=== PATIENT | female | born 1935 | race Caucasian/White ===

== ENCOUNTER 2016-09-01 10:23 | Emergency (ER) | payer MEDICARE, OTHER ==
[~2016-09-01] VITALS: Ht 152.4 cm; Wt 59.0 kg
[~2016-09-01 10:23] MED LIST: CYAN100071 PO; D3 PO; DOXY100C41 PO; FISH OIL PO; LACT1CAP69 PO; SPIR25TA4 PO; UBID100C13 PO
--- NOTE | 2016-09-01 10:30 | NUR ---
BIB TRIAGE NURSE TO BEDSIDE. PT IS A 80 Y/O F. ACCOMPANIED BY SON AT BEDSIDE. PT IS AMBULATORY WITH SLOW GAIT. SPEAKING IN FULL SENTENCES. VSS. NAD NOTED. C/O LOWER BACK PAIN S/P CARRYING A HEAVY OBJECT. HX OF CHRONIC BACK PAIN IN THE PAST. PT DOES'T REMEMBER MEDICAITON THAT SHE WAS TAKING AT HOME. BUT IT WAS "INEFFECTIVE". WCTM PT AT THIS TIME. WATING FOR MD TO PERFORM MSE.
[2016-09-01] MEDS ORDERED: HYDROCODONE/APAP 5-325MG TABLET PO ONE (10:45)
[2016-09-01] MEDS ORDERED: HYDROCODONE/APAP 5-325MG TABLET ONE (10:52)
[2016-09-01 10:53] LABS: BASOPHILS % (AUTO) 0.7 % (0.0-2.0); EOSINOPHILS % (AUTO) 0.6 % (0.0-7.0); HEMATOCRIT 38.5 % (37-47); HEMOGLOBIN 12.8 G/DL (12.0-16.0); LYMPHOCYTES # (AUTO) 1.4 K/UL (0.8-4.8); LYMPHOCYTES % (AUTO) 29.2 % (20.5-51.5); MEAN CORPUSCULAR HEMOGLOBIN 33.8 UUG (27.0-31.0); MEAN CORPUSCULAR HGB CONC 33 g/dL (32.0-37.0); MEAN CORPUSCULAR VOLUME 101.9 FL (81.0-99.0); MONOCYTES # (AUTO) 0.2 K/UL (0.1-1.30); MONOCYTES % (AUTO) 4.5 % (0.0-11.0); NEUTROPHILS # (AUTO) 3.2 K/UL (1.8-8.9); PLATELET COUNT (AUTO) 257 K/UL (150-450); RED BLOOD CELL COUNT(AUTO) 3.78 MIL/UL (4.2-5.4); WHITE BLOOD COUNT (AUTO) 4.8 K/UL (4.0-11.2)
[2016-09-01 10:59] LABS: CARBON DIOXIDE 27 mmol/L (21-32); CHLORIDE 99 mmol/L (98-107); CREATININE 0.8 mg/dL (0.6-1.3); GLUCOSE 113 mg/dL (74-106); POTASSIUM 4.4 mmol/L (3.5-5.1); UREA NITROGEN, BLOOD 21 mg/dL (7-18)
[2016-09-01 11:04] LABS: ALANINE AMINOTRANSFERASE 44 U/L (14-59); ALKALINE PHOSPHATASE 77 U/L (50-136); ASPARTATE AMINOTRANSFERASE 34 U/L (15-37); BILIRUBIN,DIRECT 0.2 mg/dL (0.0-0.2); BILIRUBIN,TOTAL 0.7 mg/dL (0.2-1.0); LIPASE 155 U/L (73-393); TOTAL PROTEIN, SERUM 6.9 g/dL (6.4-8.2)
--- NOTE | 2016-09-01 11:19 | NUR ---
UA COLLECTED AND SENT
[2016-09-01 11:34] LABS: *BILIRUBIN,URIN NEGATIVE (NEGATIVE); *BLOOD, URINE NEGATIVE (NEGATIVE); *CLARITY,URINE SLIGHTLY CLOUDY (CLEAR); *COLOR,URINE YELLOW (YELLOW); *KETONES,URINE NEGATIVE (NEGATIVE); *PROTEIN,URINE 1+ (NEGATIVE); LEUKOCYTE ESTERASE ,URINE 3+ (NEGATIVE); NITRITE, URINE POSITIVE (NEGATIVE); PH,URINE 8.5 (5.0-8.0); UGLUCOSE NEGATIVE (NEGATIVE)
[2016-09-01 11:41] LABS: BACTERIA,URINE MANY /HPF (NONE SEEN); RBC,URINE 0-3 /HPF (0-3); SQUAMOUS EPITHELIAL CELL,UR MODERATE /HPF (NONE SEEN); WBC,URINE 80-100 /HPF (0-3)
[2016-09-01] MEDS ORDERED: KETOROLAC TROMETHAMINE 15 MG INJ IM ONE (12:00)
[2016-09-01] MEDS ORDERED: CIPROFLOXACIN HCL 250 MG TABLET PO ONE (12:00)
[2016-09-01] MEDS ORDERED: CIPROFLOXACIN HCL 250 MG TABLET ONE (12:09)
[2016-09-01] MEDS ORDERED: KETOROLAC TROMETHAMINE 15 MG INJ ONE (12:09)
[2016-09-01 12:13] VITALS: BP 148/74
--- NOTE | 2016-09-01 12:14 | NUR ---
Patient discharged to home in stable conditon. Written and verbal after care instructions given. Patient verbalizes understanding of instructions. Prescription provided per MD's order. No further questions or concerns noted prior on leaving the ED.
== END 2016-09-01 12:14 | disposition home or self-care (01) ==
LOC: ER 10:23
DX: N12 Tubulo-interstitial nephritis, not specified as acute or chronic (principal); R91.1 Solitary pulmonary nodule; I10 Essential (primary) hypertension; M19.90 Unspecified osteoarthritis, unspecified site; Z88.2 Allergy status to sulfonamides
CPT/HCPCS: 36415; 74176; 80048; 80076; 81001; 83690; 85025; 87077; 87086; 87186; 96372; 99285; A4663; J1885

== ENCOUNTER 2018-12-17 21:14 | Emergency (ER) | payer MEDICARE, OTHER ==
[~2018-12-17] VITALS: Ht 149.9 cm; Wt 54.4 kg
[~2018-12-17 21:14] MED LIST changes: -SPIR25TA4 PO; +SPIR25TA6 PO
--- NOTE | 2018-12-17 21:47 | NUR ---
MD AT BEDSIDE FOR HX AND PHYSICAL PT IS AMBULATORY W/ STABLE GAIT REPORTING MILD HEADACHE AND INCREASING BP THIS EVENING RELATIVE ENDORSED: PT HAS TAKEN BP MEDS AROUND 7PM ABLE TO SPEAK CLEAR AND COMPLETE SENTENCES DENIES FEVERS/DENIES NVD/DENIES CHANGES IN LOC MONITORED ACCORDINGLY AT [facility], [facility] UP BED AT LOWEST POSITION
--- NOTE | 2018-12-17 22:12 | NUR ---
VITALS RETAKEN AND RECORDED PT CURRENTLY DENIES PAIN Patient discharged to home in stable conditon. Written and verbal after care instructions given. Patient verbalizes understanding of instructions. AMBULATORY W/ STABLE GAIT ALL BELONGINGS W/ PT
[2018-12-17 22:13] VITALS: BP 145/65
== END 2018-12-17 22:14 | disposition home or self-care (01) ==
LOC: ER 21:17
DX: I10 Essential (primary) hypertension (principal); Z88.2 Allergy status to sulfonamides; Z79.899 Other long term (current) drug therapy; Z79.2 Long term (current) use of antibiotics
CPT/HCPCS: A4663

== ENCOUNTER 2020-04-09 22:51 | Inpatient (IN) | payer MEDICARE, OTHER ==
[~2020-04-09] VITALS: Ht 144.8 cm; Wt 53.5 kg
--- NOTE | 2020-04-09 23:15 | NUR ---
Patient BIB daughter from home for c/o palpitation since this AM. Denies CP or SOB at this time.
[2020-04-09] MEDS ORDERED: AMIODARONE HCL IV 450 MG in IV DEXTROSE 5% 250 ML IV PRN (23:30)
[2020-04-09] MEDS ORDERED: AMIODARONE HCL IV 150 MG in IV DEXTROSE 5% 100 ML IV ONE (23:30)
[2020-04-09] MEDS ORDERED: AMIODARONE HCL 150 MG/3 ML VIAL IV ONE (23:30)
[2020-04-09 23:31] LABS: BASOPHILS % (AUTO) 0.3 % (0.0-2.0); EOSINOPHILS % (AUTO) 0.1 % (0.0-7.0); HEMATOCRIT 35.6 % (31.2-41.9); HEMOGLOBIN 12.2 g/dL (10.9-14.3); LYMPHOCYTES # (AUTO) 1.6 K/uL (20.0-40.0); LYMPHOCYTES % (AUTO) 10.2 % (20.5-51.5); MEAN CORPUSCULAR HEMOGLOBIN 34.8 uug (24.7-32.8); MEAN CORPUSCULAR HGB CONC 34 g/dL (32.3-35.6); MEAN CORPUSCULAR VOLUME 101.9 fL (75.5-95.3); MONOCYTES # (AUTO) 1.1 K/uL (2.0-10.0); MONOCYTES % (AUTO) 6.9 % (0.0-11.0); NEUTROPHILS # (AUTO) 13.2 K/uL (1.8-8.9); NEUTROPHILS % (AUTO) 82.5 % (38.5-71.5); PLATELET COUNT (AUTO) 200 K/uL (179-408)
--- NOTE | 2020-04-09 23:33 | NUR ---
Dr. Vasquez at bedside for MSE.
[2020-04-09] MEDS ORDERED: DILT30TA2 PO (23:39)
[2020-04-09] MEDS ORDERED: CEFTRIAXONE 1 G in IV DEXTROSE 5% 50 ML IV ONE (23:45)
[2020-04-09] MEDS ORDERED: ONDANSETRON 4 MG/2 ML VIAL IV ONE (23:45)
[2020-04-09] MEDS ORDERED: ONDANSETRON 4 MG/2 ML VIAL ONE (23:48)
[2020-04-09] MEDS ORDERED: CEFTRIAXONE /D5W 50ML IVPB **ER PYXIS IV ONE (23:49)
[2020-04-09 23:55] LABS: BILIRUBIN,DIRECT 0.3 mg/dL (0.0-0.2); BILIRUBIN,TOTAL 0.9 mg/dL (0.2-1.0); CREATININE 0.8 mg/dL (0.6-1.3); POTASSIUM 3.9 mmol/L (3.5-5.1); TOTAL PROTEIN, SERUM 6.2 g/dL (6.4-8.2)
[2020-04-10] VITALS (21 sets, daily range): BP systolic 106–129; BP diastolic 32–78
[2020-04-10] MEDS ORDERED: AZIL80TA PO (00:05)
[2020-04-10] MEDS ORDERED: MAGN400C PO (00:05)
[2020-04-10] MEDS ORDERED: APIX5TAB PO (00:05)
[2020-04-10] MEDS ORDERED: GABA-532 PO (00:05)
--- NOTE | 2020-04-10 00:48 | NUR ---
Dr. Vasquez at bedside.
--- NOTE | 2020-04-10 00:56 | NUR ---
Epic panel call placed, spoke to Shea stated she will get a hold of Dr. Ku for admitting.
--- NOTE | 2020-04-10 00:59 | NUR ---
Dr. Vasquez on panel call with Dr. Ku. Patient accepted for admission to Tele unit, room 312, Dx A Fib with RVR and Pyelonephritis .
[2020-04-10] MEDS ORDERED: ENOXAPARIN SODIUM 60 MG/0.6 ML DISP.SYRIN SQ ONE (01:15)
[2020-04-10 01:20] LABS: *BILIRUBIN,URIN NEGATIVE (NEGATIVE); *BLOOD, URINE 1+ (NEGATIVE); *CLARITY,URINE HAZY (CLEAR); *COLOR,URINE YELLOW (YELLOW); *KETONES,URINE 1+ (NEGATIVE); *UROBILINOGEN,URINE 0.2 E.U./dl (NORMAL); LEUKOCYTE ESTERASE ,URINE TRACE (NEGATIVE); NITRITE, URINE POSITIVE (NEGATIVE); PH,URINE 6.5 (5.0-8.0); UGLUCOSE NEGATIVE (NEGATIVE)
[2020-04-10 01:22] LABS: BACTERIA,URINE MODERATE /HPF (NONE SEEN); SQUAMOUS EPITHELIAL CELL,UR MODERATE /HPF (NONE SEEN)
[2020-04-10] MEDS ORDERED: HYDROCODONE/APAP 5-325MG TABLET PO PRN (01:30)
[2020-04-10] MEDS ORDERED: LORAZEPAM 0.5 MG TABLET PO PRN (01:30)
[2020-04-10] MEDS ORDERED: ONDANSETRON 4 MG/2 ML VIAL IV PRN (01:30)
[2020-04-10] MEDS ORDERED: DILTIAZEM HCL 30 MG TABLET PO PRN (01:30)
[2020-04-10] MEDS ORDERED: MAGNESIUM HYDROXIDE 30 ML LIQUID UDC PO PRN (01:30)
[2020-04-10] MEDS ORDERED: Z GUARD REMEDY PASTE 57 GM TUBE TOP PRN (01:30)
--- NOTE | 2020-04-10 02:00 | NUR ---
Patient HR remians in the 70's. Dr. Vasquez aware that Amiodarone drip was not started, this nurse ask if Amiodarone drip could still be started and Dr. Vasquez stated no need to give the drip, since pt HR remains on the 70's although still on A. fib. Dr. Vasquez stated he will discontinue Amidarone drip order.
--- NOTE | 2020-04-10 02:40 | NUR ---
Pt. admitted to telemetry unit, room 312, under care of Dr. Ku. Report given to JAY Lazcano. Belongs List completed
--- NOTE | 2020-04-10 02:40 | NUR ---
PT CAME FROM ER C/O PALPITATIONS AFTER RECEIVING LEVAQUIN EARLIER IN THE DAY FOR UTI. PT ADMITTING DX IS AFIB W/ RVR. PT DENIES ANY SOB/CP. CURRENT V/S STABLE ON ROOM AIR SATURATING AT 96%. NSR ON TELE MONITOR. SKIN INTACT. PIV ON LAC20 IS INTACT. PT BELONGINGS CHECKED AND WITH THE PATIENT. SAFETY MEASURES IN PLACE. BED LOW AND LOCKED IN POSITION. CALL LIGHT WITHIN REACH. WILL CONTINUE WITH THE PLAN OF CARE.
--- NOTE | 2020-04-10 07:30 | NUR ---
Awake, alert, oriented x 4. Denies chest pain nor palpitation. Ambulatory, assisted to the bathroom.
[2020-04-10] MEDS: MAGNESIUM OXIDE 400 MG TABLET PO SCH (08:44)
[2020-04-10] MEDS ORDERED: Medication Not On Formulary EA (Ubidecarenone (Coq-10) 200 MG) PO SCH (09:00)
--- NOTE | 2020-04-10 09:31 | NUR ---
noted rhythm change to 2:1 flutter, HR 180; Patient feeling palpitation; Vital signs taken. MD informed, transferred to [facility] status, started Amiodarone drip as previously ordered. Called Staff Development Coordinator Rn, waiting for call back. Monitoring patient
[2020-04-10] MEDS: AMIODARONE HCL IV 450 MG in IV DEXTROSE 5% 250 ML IV PRN ×3 (10:20→16:52)
--- NOTE | 2020-04-10 11:10 | NUR ---
EKG done, Dr. Cedillo called back with orders. Cardizem 1o mg IVP and Amiodarone bolus given. Continued to monitor patient
[2020-04-10] MEDS ORDERED: DILTIAZEM HCL 25 MG IV IV ONE ×3 (11:15→14:15)
[2020-04-10] MEDS ORDERED: AMIODARONE HCL IV 150 MG in IV DEXTROSE 5% 100 ML IV ONE (11:15)
[2020-04-10] MEDS: APIXABAN 5 MG TABLET PO SCH ×2 (12:38→18:08)
--- NOTE | 2020-04-10 13:25 | NUR ---
HR 161, bp 121/77; Another dose of Cardizem 10 mg IV given. Continued with monitoring
[2020-04-10] MEDS ORDERED: NORMAL SALINE IV SCH (14:15)
[2020-04-10] MEDS ORDERED: DILTIAZEM HCL IV SCH (14:15)
[2020-04-10] MEDS ORDERED: DILTIAZEM HCL IV 125 MG in IV NORMAL SALINE 100 ML IV PRN (14:30)
--- NOTE | 2020-04-10 14:45 | NUR ---
Dr. Cedillo seen and examined patient with orders. Another Cardizem 10 mg IV given and Cardizem drip started at 5mg/hr. Echocardiogram done at bedside
--- NOTE | 2020-04-10 16:55 | NUR ---
Converted to SR 84, BP 117/46. Amiodarone drip at 0.5mg and Cardizem drip at 5mg. Will continue to monitor
[2020-04-10 17:34] LABS: BASOPHILS % (AUTO) 0.1 % (0.0-2.0); HEMOGLOBIN 12.5 g/dL (10.9-14.3); LYMPHOCYTES # (AUTO) 1.6 K/uL (20.0-40.0); LYMPHOCYTES % (AUTO) 12.1 % (20.5-51.5); MEAN CORPUSCULAR HEMOGLOBIN 34.4 uug (24.7-32.8); MEAN CORPUSCULAR HGB CONC 34 g/dL (32.3-35.6); MEAN CORPUSCULAR VOLUME 101.5 fL (75.5-95.3); MONOCYTES # (AUTO) 0.7 K/uL (2.0-10.0); MONOCYTES % (AUTO) 5.3 % (0.0-11.0); NEUTROPHILS # (AUTO) 10.8 K/uL (1.8-8.9); NEUTROPHILS % (AUTO) 82.5 % (38.5-71.5); PLATELET COUNT (AUTO) 175 K/uL (179-408); RED BLOOD CELL COUNT(AUTO) 3.64 MIL/uL (3.63-4.92); WHITE BLOOD COUNT (AUTO) 13.1 K/uL (3.8-11.8)
[2020-04-10 17:37] LABS: CARBON DIOXIDE 26 mmol/L (21-32); CHLORIDE 91 mmol/L (98-107); CREATININE 0.9 mg/dL (0.6-1.3); GLUCOSE 132 mg/dL (74-106); POTASSIUM 4.2 mmol/L (3.5-5.1); UREA NITROGEN, BLOOD 17 mg/dL (7-18)
--- NOTE | 2020-04-10 18:22 | NUR ---
Sustained SR 84. Cardizem drip discontinued. Dr. Cedillo informed. BP 116/48
--- NOTE | 2020-04-10 20:25 | NUR ---
Awake, calm and quietly lying on bed with HOB elevated with continuos O2 at 2L via NC saturating 94% at this time SR on the monitor with HR 84bpm. Low grade fever 100.8 oral, cooling measures initiated. Denies any pain/discomforts at this time. LFA IV with Amiodarone drip infusing at the rate 16.6 ml, as ordered, patent and LFA HL both intact and patent , no s/s of infiltration, Ambulatory to the BR with hand held assist. No SOB/SOBOE presented. Continue care as planned.
[2020-04-10] MEDS: ACETAMINOPHEN 325 MG TABLET PO PRN (20:42)
[2020-04-10] MEDS: GABAPENTIN 100 MG CAPSULE PO SCH (20:42)
[2020-04-11 00:08] VITALS: BP 112/46
[2020-04-11 05:09] VITALS: BP 105/46
[2020-04-11 06:19] LABS: BASOPHILS % (AUTO) 0.2 % (0.0-2.0); EOSINOPHILS % (AUTO) 0.1 % (0.0-7.0); HEMATOCRIT 33.2 % (31.2-41.9); HEMOGLOBIN 11.4 g/dL (10.9-14.3); LYMPHOCYTES # (AUTO) 2.7 K/uL (20.0-40.0); LYMPHOCYTES % (AUTO) 20.6 % (20.5-51.5); MEAN CORPUSCULAR HEMOGLOBIN 35.1 uug (24.7-32.8); MEAN CORPUSCULAR HGB CONC 34 g/dL (32.3-35.6); MEAN CORPUSCULAR VOLUME 102.6 fL (75.5-95.3); MONOCYTES % (AUTO) 7.8 % (0.0-11.0); NEUTROPHILS # (AUTO) 9.3 K/uL (1.8-8.9); NEUTROPHILS % (AUTO) 71.3 % (38.5-71.5); PLATELET COUNT (AUTO) 159 K/uL (179-408); RED BLOOD CELL COUNT(AUTO) 3.24 MIL/uL (3.63-4.92)
--- NOTE | 2020-04-11 06:27 | NUR ---
Shift End Report: Continues Amiodarone drip at 16.6 cc/hour as ordered. Remained to be on SR with occasional PVC's. Slept good with good saturation. No complaint presented . No significant event reported all night. Continue care as planned.
[2020-04-11 06:54] LABS: CREATININE 0.8 mg/dL (0.6-1.3); PHOSPHOROUS 2.1 mg/dL (2.5-4.9)
[2020-04-11] MEDS ORDERED: AMIODARONE HCL IV 450 MG in IV DEXTROSE 5% 250 ML IV PRN ×4 (07:45)
--- NOTE | 2020-04-11 08:00 | NUR ---
AWAKE ALERT AND ORIENTED X3, DENIES CHEST PAIN, O2 AT 2L NC SATURATING 96%. CONTINUE WITH AMIODARONE DRIP PER PROTOCOL. REMAINS ON SR 70-80/MIN. AFEBRILE
[2020-04-11] MEDS: MAGNESIUM OXIDE 400 MG TABLET PO SCH (08:47)
[2020-04-11] MEDS: APIXABAN 5 MG TABLET PO SCH ×2 (08:47→16:50)
[2020-04-11 09:23] VITALS: BP 110/50
[2020-04-11] MEDS: CEFTRIAXONE 1 G in IV DEXTROSE 5% 50 ML IV SCH (09:36)
[2020-04-11] MEDS: AMIODARONE HCL 200 MG TABLET PO SCH (11:55)
--- NOTE | 2020-04-11 12:00 | NUR ---
SEEN BY DR CARVER MAINTENANCE AIDE FOR FOLLOW-UP AND ORDERED TO STOP AMIODARONE SHAHRAM FOLLOWED WITH ORAL AMIODARONE
[2020-04-11 12:15] VITALS: BP 166/68
[2020-04-11] MEDS ORDERED: NEUTRA PHOS PACKET PO ONE (15:30)
[2020-04-11 15:57] VITALS: BP 160/57
--- NOTE | 2020-04-11 17:25 | NUR ---
DENIES CHEST PAIN OR SOB WITH 2L NC SATURATING 95%, UP AND ABOUT WITH VISUAL ASSIST, REMIANS SR ON MONITOR
[2020-04-11 18:43] LABS: *CREATININE,URINE 65.2 mg/dL (30-125)
--- NOTE | 2020-04-11 19:48 | NUR ---
Received patient in bed .Alert and able to make needs known.No s/s of distress noted.Denies chest pain.SR on tele monitor.O2 at 2LPM via NC saturating at 96%.Patient ambulates to bathroom.Compliant with medication .Call light with in reach.Continue safety measures.Will continue to monitor.
[2020-04-11] MEDS: GABAPENTIN 100 MG CAPSULE PO SCH (20:33)
[2020-04-11] MEDS: ACETAMINOPHEN 325 MG TABLET PO PRN (20:34)
[2020-04-11 20:49] VITALS: BP 127/57
[2020-04-12] VITALS (7 sets, daily range): BP systolic 101–135; BP diastolic 37–60
[2020-04-12 06:30] LABS: BASOPHILS % (AUTO) 0.2 % (0.0-2.0); EOSINOPHILS % (AUTO) 0.5 % (0.0-7.0); HEMATOCRIT 33.5 % (31.2-41.9); HEMOGLOBIN 11.5 g/dL (10.9-14.3); LYMPHOCYTES # (AUTO) 2.3 K/uL (20.0-40.0); LYMPHOCYTES % (AUTO) 31.8 % (20.5-51.5); MEAN CORPUSCULAR HEMOGLOBIN 35.2 uug (24.7-32.8); MEAN CORPUSCULAR HGB CONC 34 g/dL (32.3-35.6); MEAN CORPUSCULAR VOLUME 102.5 fL (75.5-95.3); MONOCYTES # (AUTO) 0.8 K/uL (2.0-10.0); NEUTROPHILS # (AUTO) 4.1 K/uL (1.8-8.9); NEUTROPHILS % (AUTO) 56.5 % (38.5-71.5); PLATELET COUNT (AUTO) 137 K/uL (179-408); RED BLOOD CELL COUNT(AUTO) 3.27 MIL/uL (3.63-4.92); WHITE BLOOD COUNT (AUTO) 7.2 K/uL (3.8-11.8)
[2020-04-12 06:49] LABS: CREATININE 0.8 mg/dL (0.6-1.3); MAGNESIUM 2.2 mg/dL (1.8-2.4); PHOSPHOROUS 2.5 mg/dL (2.5-4.9); POTASSIUM 3.7 mmol/L (3.5-5.1)
[2020-04-12] MEDS ORDERED: IV NS 1000 ML 1,000 ML IV PRN (07:15)
[2020-04-12] MEDS ORDERED: POTASSIUM CHLORIDE 20 MEQ TAB.PRT.SR PO ONE (07:15)
[2020-04-12 07:23] LABS: URIC ACID 2.7 mg/dL (2.6-6.0)
--- NOTE | 2020-04-12 07:35 | NUR ---
Received patient in bed, awake, A&Ox3, able to verbalize needs. No acute distress noted. Pt denies chest pain, denies pain/discomfort. Pt is SR on surveillance monitor. No SOB noted, pt on 2LPM via NC saturating at 95%. Bed locked and in low position, safety measures in place. Call light within reach, reinforced usage, pt verbalized understanding. Will continue to monitor.
[2020-04-12 07:50] LABS: THYROID STIMULATING HORMONE 2.141 mIU/mL (0.358-3.740)
[2020-04-12] MEDS: AMIODARONE HCL 200 MG TABLET PO SCH (08:30)
[2020-04-12] MEDS: APIXABAN 5 MG TABLET PO SCH ×2 (08:36→17:53)
[2020-04-12] MEDS: CEFTRIAXONE 1 G in IV DEXTROSE 5% 50 ML IV SCH (08:37)
[2020-04-12] MEDS: MAGNESIUM OXIDE 400 MG TABLET PO SCH (08:38)
--- NOTE | 2020-04-12 10:45 | NUR ---
Dr. Cedillo Cardiology on unit and examined pt, report given. Pt c/o flank pain, new orders for CT Abdomen today.
--- NOTE | 2020-04-12 11:00 | NUR ---
Pt off unit with radiology for CT abdomen.
--- NOTE | 2020-04-12 11:35 | NUR ---
Pt back on unit, NAD, denies SOB, VSS. Continue to monitor.
--- NOTE | 2020-04-12 19:01 | NUR ---
PATIENT ALERT ORIENTED, NO SOB NO CHEST PAIN, NO COMPLAIN OF PAIN. PATIENT CONTINENT OF BOWEL AND BLADDER, ASSISTED WITH TOILETING, CALL LIGHT WITHIN REACH.
--- NOTE | 2020-04-12 19:45 | NUR ---
EOSS: Pt in bed, awake and watching TV. No acute distress, no complaints at this time. Denies chest pain, SOB. Pt remains in sinus rhythm with heart rate of 85 on nuclear monitoring technician. VSS. Able to verbalize needs during shift, needs met promptly. Medications given per order, no a/r noted. R FA 20 g IV patent and intact. Pt able to ambulate to restroom with standby assistance. Safety measures maintained. Call light and belongings within reach. Will endorse care to night shift manager.
[2020-04-12] MEDS: GABAPENTIN 100 MG CAPSULE PO SCH (20:30)
[2020-04-13 00:03] VITALS: BP 144/61
[2020-04-13 04:06] VITALS: BP 136/58
[2020-04-13 06:19] LABS: BASOPHILS % (AUTO) 0.3 % (0.0-2.0); HEMATOCRIT 32.4 % (31.2-41.9); HEMOGLOBIN 10.9 g/dL (10.9-14.3); LYMPHOCYTES # (AUTO) 1.7 K/uL (20.0-40.0); LYMPHOCYTES % (AUTO) 41.2 % (20.5-51.5); MEAN CORPUSCULAR HEMOGLOBIN 34.7 uug (24.7-32.8); MEAN CORPUSCULAR HGB CONC 34 g/dL (32.3-35.6); MONOCYTES # (AUTO) 0.5 K/uL (2.0-10.0); MONOCYTES % (AUTO) 13.2 % (0.0-11.0); NEUTROPHILS # (AUTO) 1.8 K/uL (1.8-8.9); NEUTROPHILS % (AUTO) 44.3 % (38.5-71.5); PLATELET COUNT (AUTO) 158 K/uL (179-408); RED BLOOD CELL COUNT(AUTO) 3.14 MIL/uL (3.63-4.92); WHITE BLOOD COUNT (AUTO) 4.1 K/uL (3.8-11.8)
[2020-04-13 06:45] LABS: CREATININE 0.6 mg/dL (0.6-1.3); MAGNESIUM 2.2 mg/dL (1.8-2.4); PHOSPHOROUS 2.7 mg/dL (2.5-4.9); POTASSIUM 4.8 mmol/L (3.5-5.1)
--- NOTE | 2020-04-13 07:02 | NUR ---
PATIENT ALERT ORIENTED, NO SOB NO CHEST PAIN. PATIENT TELE MONITOR SINUS RHYTHM, NO COMPLAIN OF PAIN AT THIS TIME, ASSISTED WITH TOILETING. CALL LIGHT WITHIN REACH.
--- NOTE | 2020-04-13 07:30 | NUR ---
Received patient sitting up in chair awake, alert and oriented times 4. No sign of distress noted. Patient is on 2L of NC, will try to wean patient off since O2 sat is at 100%. safety precautions are in place. Will continue to monitor.
[2020-04-13] MEDS: CEFTRIAXONE 1 G in IV DEXTROSE 5% 50 ML IV SCH (09:47)
[2020-04-13] MEDS: MAGNESIUM OXIDE 400 MG TABLET PO SCH (09:47)
[2020-04-13] MEDS: AMIODARONE HCL 200 MG TABLET PO SCH (09:48)
[2020-04-13] MEDS: APIXABAN 5 MG TABLET PO SCH ×2 (09:49→17:33)
[2020-04-13 11:54] VITALS: BP 139/59
[2020-04-13 16:02] VITALS: BP_SYST 157; BP_SYST 163; BP_DIAS 55; BP_DIAS 62
[2020-04-13] MEDS ORDERED: CEPH500C2 PO (16:05)
[2020-04-13] MEDS ORDERED: AMIO200T5 PO (16:05)
[2020-04-13] MEDS ORDERED: AMIO200T6 PO (16:05)
[2020-04-13 16:12] VITALS: BP 150/85
[2020-04-13] MEDS ORDERED: CLONIDINE HCL 0.2 MG TABLET PO ONE (18:15)
--- NOTE | 2020-04-13 18:17 | NUR ---
Patient blood pressure is elevated prior to discharge. BP is currently 198/81 with a heart rate of 80 Made MD aware. Order given. will continue to monitor
--- NOTE | 2020-04-13 19:01 | NUR ---
Patient left resting in bed. No sign of distress noted. Patient is on room air. All medications given as ordered. Patient is pending discharge. BP was elevated, game PO clonidine. Will reassess medications. Safety precautions in place. Will endorse to the oncoming nurse.
[2020-04-13 20:00] VITALS: BP 151/62
[2020-04-13] MEDS: GABAPENTIN 100 MG CAPSULE PO SCH (20:19)
--- NOTE | 2020-04-13 20:22 | NUR ---
PATIENT ALERT ORIENTED, NO SOB NO CHEST PAIN, NO COMPLAIN OF PAIN. PATIENT TO BE DISCHARGE HOME WITH THE DAUGHTER YOJANA, BP STABLE 151/67, HR 73, ROOM AIR 99%, IV LINE WAS REMOVED. PATIENT DAUGHTER AT THE PHONE, EXPLAINED TO DAUGHTER NEW PRESCRIPTIONS, AND MEDICATIONS PRESCRIPTIOS WAS SENT TO PREFERRED PHARMACY. PATIENT TOOK ALL BELONGINGS.
== END 2020-04-13 20:30 | disposition home or self-care (01) | DRG 281 ==
LOC: ER 22:51 → TELE3 04-10 02:15 → TELE-TD3 04-10 09:40 → TELE3 04-11 17:28
PROVIDERS: ATTEND Internal Medicine
DX: I48.0 Paroxysmal atrial fibrillation (principal); I21.A1 Myocardial infarction type 2; N39.0 Urinary tract infection, site not specified; E87.1 Hypo-osmolality and hyponatremia; D68.69 Other thrombophilia; J90 Pleural effusion, not elsewhere classified; I31.3 Pericardial effusion (noninflammatory); I48.92 Unspecified atrial flutter; Z20.822 Contact with and (suspected) exposure to COVID-19; K76.89 Other specified diseases of liver; M41.9 Scoliosis, unspecified; Z79.01 Long term (current) use of anticoagulants; E78.5 Hyperlipidemia, unspecified; I11.9 Hypertensive heart disease without heart failure; Z88.2 Allergy status to sulfonamides; I08.0 Rheumatic disorders of both mitral and aortic valves; R53.1 Weakness; R91.1 Solitary pulmonary nodule
CPT/HCPCS: 36415; 70030-TC; 71045; 82533; 83735; 84100; 84300; 84443; 84550; 85025; 85730; 87086; 93005; 93307; A4663; G0378; J0282; J0696; J1650; J2405; J3490; J7030; J7040; J7050; J7060